=== PATIENT | male | born 1980 | race Caucasian/White ===

== ENCOUNTER 2020-08-20 07:16 | Outpatient (REF) | payer OTHER, SELFPAY | END 2020-08-20 07:17 | disposition home or self-care (01) | LOC: HO.LAB 07:16 | PROVIDERS: Visit Provider Internal Medicine | DX: Z20.828 Contact with and (suspected) exposure to other viral communicable diseases (principal) | CPT/HCPCS: C9803; U0003 ==

== ENCOUNTER 2020-09-27 06:30 | Inpatient (IN) | payer OTHER, SELFPAY ==
[2020-09-27] VITALS (8 sets, daily range): BP systolic 107–133; BP diastolic 62–76; PULSE 59–82; RESP 16–20; TEMP 37; O2SAT 95–99; BMI 27.1
--- NOTE | ~2020-09-27 | XR_ITS ---
EXAMINATION: XR CHEST CLINICAL INFORMATION: Confirm nasogastric tube placement. COMPARISON: 01/27/2018 chest radiograph. TECHNIQUE: Frontal view of the chest was obtained. FINDINGS: Support devices: A nasogastric tube is seen with tip in side-port below the left hemidiaphragm overlying the proximal stomach. There is mild elevation of the left hemidiaphragm with mild superjacent linear atelectasis versus scarring. The right lung is clear. The heart and mediastinal structures are unremarkable. Prominent gaseous distention of the superior colon is noted. XR/XR chest 1V IMPRESSION: 1. Nasogastric tube tip appears in good position. 2. No acute cardiopulmonary process. Persistent mild elevation of the left hemidiaphragm with mild superjacent linear atelectasis versus scarring.
--- NOTE | ~2020-09-27 | CT_ITS ---
EXAMINATION: CT abdomen pelvis wo con CLINICAL INFORMATION: Reason for Exam L flank pain COMPARISON: Prior CT scan from 01/27/2018 TECHNIQUE: Multidetector volumetric imaging was performed from the superior aspect of the liver through the pubic symphysis , noncontrasted study. Sagittal and coronal reformatted images were obtained on the technologist's workstation. This CT examination was performed using dose optimization techniques as appropriate, variously including the following: *Automated exposure control *Adjustment of mA and/or kV according to patient size (this includes techniques or standardized protocols for targeted exams where dose is matched to indication/reason for exam; i.e. extremities or head) *Use of iterative reconstruction technique DLP: 729 mGy-cm FINDINGS: LOWER THORAX: There is infiltrate/partial atelectasis at left lung base and a small left pleural effusion. HEPATOBILIARY: No focal hepatic lesions. No biliary ductal dilatation. GALLBLADDER: Gallbladder unremarkable. SPLEEN: Spleen is normal in size. PANCREAS: No focal mass or ductal dilatation. STOMACH AND GASTROINTESTINAL TRACT: Stomach is grossly unremarkable. Excess amount of stool in the colon suggesting constipation. Colon is dilated just proximal to anastomosis site in the left lower quadrant, raising concern for possible partial obstruction.. No CT evidence of appendicitis. ADRENALS: No adrenal nodules. KIDNEYS/URETERS: No hydronephrosis, stones or solid mass lesions. URINARY BLADDER: Partially decompressed. PELVIC VISCERA: Unremarkable PERITONEUM: No free air or fluid. LYMPH NODES: No lymphadenopathy. VASCULAR:Abdominal aorta normal in size, no aneurysm found. BONES, ABDOMINAL WALL AND SOFT TISSUES: Age-appropriate changes of the spine and skeletal system, no destructive osteolytic or osteosclerotic bone lesion found CT/CT abdomen pelvis wo con IMPRESSION: Stool-filled mildly dilated colon with a partial transition at anastomosis site at left lower quadrant, raising concern for possible partial obstruction versus constipation. Please correlate clinically. If patient symptoms persist may consider correlation with follow-up outpatient barium enema or colonoscopy. Mild infiltrate/partial atelectasis at left lung base.
--- NOTE | ~2020-09-27 | FL_ITS ---
EXAMINATION: XR BARIUM ENEMA CLINICAL INFORMATION: Distended abdomen with abdominal pain. COMPARISON: CT abdomen and pelvis 09/27/2020. TECHNIQUE: A KUB was obtained. Subsequently a balloon inflated rectal tube was inserted and a 50-50 diluted Gastrografin was injected under fluoroscopy. FINDINGS: Prior to the exam, the KUB reveals moderately distended descending and transverse colon. The descending colon measures approximately 15.9 cm wide. There is moderate stool in the right colon. Following retrograde administration of diluted Gastrografin, there is normal passage of contrast from the rectum, sigmoid colon and to the ascending colon and splenic flexure with no evidence of obstruction. Approximately 600 mL of diluted Gastrografin was inserted. Normal Gastrografin was inserted due to risk of colonic rupture and extravasation. The patient was placed in different projections such as chest supine, bilateral decubitus and prone lying with leg elevation position. With these various positions, there is spontaneous decompression of anterior gas from the descending colon. Postevacuation images reveals no gas within the left colon. There is however, moderate gas and moderate stool in the right colon. FLUOROSCOPY TIME: 4.9 minutes DOSE AREA PRODUCT: 131.634 uGy-m2 (microgray-meter squared) FL/FL barium enema IMPRESSION: 1. KUB abdomen prior to Gastrografin enema revealed significant distended transverse and descending colon with with air and moderate stool in the right colon. 2. On retrograde diluted Gastrografin enema, there is no obstruction or narrowing seen in the entire descending colon. 3. Postevacuation images reveal complete emptying of the descending colon with no gaseous distention visualized. There is however, moderate stool seen in the right colon.
--- NOTE | 2020-09-27 07:43 | ED.GENADULT ---
HPI - General Adult General Chief complaint: General Medical Stated complaint: Back pain Time Seen by Provider: 09/27/20 07:01 Source: patient Mode of arrival: ambulatory Limitations: no limitations History of Present Illness HPI narrative: 40 yo male thinks he might have hurt L back at work but not sure c/o L flank pain complaint: L flank pain Onset (ago): day(s) (2) Location: back and abdomen Radiation: non-radiation Severity: moderate Quality: aching and constant Pain Consistency: constant Relieving factors: none Exacerbating factors: movement Associated symptoms: denies other symptoms Treatments prior to arrival: none Related Data Previous Rx's Medication Instructions Recorded cholecalciferol (vitamin D3) 50 50 mcg PO DAILY #30 tab 07/28/20 mcg (2,000 unit) tablet sertraline 50 mg tablet 50 mg PO DAILY #90 tab 07/28/20 hydroxyzine HCl 50 mg tablet 50 mg PO QID PRN #120 tab 09/21/20 Allergies Allergy/AdvReac Type Severity Reaction Status Date / Time No Known Allergies Allergy Verified 09/27/20 06:43 [No Known Allergies*] Review of Systems Review of Systems: Constitutional : No Weight loss, No Fever, No Chills, ENT/Mouth : No Hearing loss, No Ear Pain, No Nasal Congestion, No Sinus Pain, No Hoarseness, No sore throat, No Rhinorrhea, No Swallowing Difficulty Cardiovascular : No Chest Pain, No SOB Respiratory : No Cough, No Dyspnea Gastrointestinal : No Nausea, No Vomiting, No Diarrhea, No abdominal Pain, No Hematochezia, No Melena Genitourinary : No Dysuria, No Urinary Frequency, No Hematuria, No Urinary Incontinence, Musculoskeletal : positive back pain Skin : No Skin Lesions, No rash Neuro : No Weakness, No Numbness, No Paresthesias, no loss of bowel or bladder incontinence, no saddle anesthesia All other systems reviewed and are negative [facility] Past Medical History Attestation statement: The following information was validated with the patient. Medical History (Updated 09/27/20 @ 10:21 by Rosa Rose DO) Anxiety and depression PTSD (post-traumatic stress disorder) Sigmoid volvulus Surgical History (Updated 09/27/20 @ 07:55 by Rosa Rose DO) H/O colectomy History of mandibular surgery Family History Family History Father No problems noted. Mother No problems noted. Social History Social History (Updated 09/27/20 @ 07:54 by Rosa Rose DO) Alcohol intake: never Smoked in Last 30 Days: No Use of substances other than those prescribed or required for medical reasons: No Advance Directives: No Advance Directives Information Provided: No Physical Exam Vital Signs: Vital Signs: Last Vital Signs Temp 98.6 F 09/27/20 06:36 Pulse 65 09/27/20 09:21 Resp 16 09/27/20 09:21 BP 107/62 09/27/20 09:21 Pulse Ox 97 09/27/20 09:21 Body Mass Index 27.1 Appearance: Alert. Oriented X3. No acute distress. Eyes: Pupils equal, round and reactive to light. ENT: Pharynx normal. Neck: Normal inspection. Neck supple. CVS: Normal heart rate and rhythm. Pulses normal. Respiratory: No respiratory distress. Breath sounds normal. Abdomen: Soft and mild L sided ttp Back: ttp along lumbar paraspinals Skin: Skin warm and dry. Normal skin color. Normal skin turgor. Extremities: No lower extremity edema. No calf ttp Neuro: Oriented X 3. No motor deficit. No sensory deficit. Course Course Course Narrative: mild LLQ pain but denies n/v had BM yesterday, no flatus today will have surgery review case given CT scan and patient's history Alexandro RECINOS - to admit given history Medical Decision Making [facility] Narrative Medical decision making narrative: 40 yo male with L flank pain and some abdominal pain hx of sigmoid volvulus with surgery denies /GI additional complaints, could be MSK strain but will need labs, UA CT scan for renal colic, IV medications for pain, dispo per results and findings. Lab Data Result diagrams: 09/27/20 07:53 09/27/20 07:53 Labs: Lab Results 09/27/20 09/27/20 09/27/20 Range/Units 07:53 07:53 07:53 WBC 6.2 (4.8-10.8) X10*3/uL RBC 5.05 (4.60-5.80) X10*6/uL Hgb 13.7 L (14.0-18.0) g/dl Hct 41.5 L (42-52) % MCV 82.2 (80-98) fL MCH 27.1 (27.0-33.0) pg MCHC 33.0 (31.0-36.0) g/dl RDW 13.2 (11.0-16.0) % Plt Count 186 (160-400) X10*3/uL MPV 10.4 (9.4-12.4) fL Immature Gran % (Auto) 0.2 (0.0-0.4) % Neut % (Auto) 64.4 (45-73) % Lymph % (Auto) 26.3 (20-40) % [place] % (Auto) 7.3 (2-11) % Eos % (Auto) 1.5 (0-4) % Baso % (Auto) 0.3 (0-2) % Lymph # (Auto) 1.6 (1.2-4.9) X10*3/uL [place] # (Auto) 0.5 (0.1-1.2) X10*3/uL Eos # (Auto) 0.1 (0.0-0.4) X10*3/uL Baso # (Auto) 0.0 (0.0-0.2) X10*3/uL Abs Immat Gran (auto) 0.01 (0.00-0.03) X10*3/uL Absolute Neuts (auto) 4.0 (2.0-8.3) X10*3/uL Absolute Nucleated RBC 0.000 (0.0-0.012) X10*3/uL Nucleated RBC % (auto) 0.0 (0.0-0.2) /100WBC Hold Blue Top SEE NOTE Sodium 139 (135-145) mmol/L Potassium 4.0 (3.3-5.1) mmol/L Chloride 108 (96-108) mmol/L Carbon Dioxide 25 (22-29) mmol/L Anion Gap 10 L (12-20) BUN 18 H (9-16) mg/dL Creatinine 0.94 (0.5-1.4) mg/dL Estim Creat Clear Calc 114.6 Estimated GFR > 60 Random Glucose 95 (60-115) mg/dL Calcium 8.5 (8.4-10.2) mg/dL Magnesium 2.0 (1.6-2.6) mg/dL Total Bilirubin 0.5 (0.0-1.0) mg/dL Direct Bilirubin 0.2 (0.0-0.5) mg/dL AST 25 (5-37) U/L ALT 30 (0-40) U/L Alkaline Phosphatase 45 (39-117) U/L Total Protein 6.6 (6.5-8.0) g/dL Albumin 4.1 (3.5-5.0) g/dL Lipase 54 (8-78) U/L Urine Color Urine Appearance Urine pH (5.0-8.0) Ur Specific [place] (1.005-1.025) Urine Protein (NEG-TRACE) MG/DL Urine Glucose (UA) (NEG) MG/DL Urine Ketones (NEG) MG/DL Urine Blood (NEG) Urine Nitrite (NEG) Ur Leukocyte Esterase (NEG) COVID-19 (KARINA) (Negative) COVID-19 Clin Com 09/27/20 09/27/20 Range/Units 09:06 09:36 WBC (4.8-10.8) X10*3/uL RBC (4.60-5.80) X10*6/uL Hgb (14.0-18.0) g/dl Hct (42-52) % MCV (80-98) fL MCH (27.0-33.0) pg MCHC (31.0-36.0) g/dl RDW (11.0-16.0) % Plt Count (160-400) X10*3/uL MPV (9.4-12.4) fL Immature Gran % (Auto) (0.0-0.4) % Neut % (Auto) (45-73) % Lymph % (Auto) (20-40) % [place] % (Auto) (2-11) % Eos % (Auto) (0-4) % Baso % (Auto) (0-2) % Lymph # (Auto) (1.2-4.9) X10*3/uL [place] # (Auto) (0.1-1.2) X10*3/uL Eos # (Auto) (0.0-0.4) X10*3/uL Baso # (Auto) (0.0-0.2) X10*3/uL Abs Immat Gran (auto) (0.00-0.03) X10*3/uL Absolute Neuts (auto) (2.0-8.3) X10*3/uL Absolute Nucleated RBC (0.0-0.012) X10*3/uL Nucleated RBC % (auto) (0.0-0.2) /100WBC Hold Blue Top Sodium (135-145) mmol/L Potassium (3.3-5.1) mmol/L Chloride (96-108) mmol/L Carbon Dioxide (22-29) mmol/L Anion Gap (12-20) BUN (9-16) mg/dL Creatinine (0.5-1.4) mg/dL Estim Creat Clear Calc Estimated GFR Random Glucose (60-115) mg/dL Calcium (8.4-10.2) mg/dL Magnesium (1.6-2.6) mg/dL Total Bilirubin (0.0-1.0) mg/dL Direct Bilirubin (0.0-0.5) mg/dL AST (5-37) U/L ALT (0-40) U/L Alkaline Phosphatase (39-117) U/L Total Protein (6.5-8.0) g/dL Albumin (3.5-5.0) g/dL Lipase (8-78) U/L Urine Color YELLOW Urine Appearance CLEAR Urine pH 6.0 (5.0-8.0) Ur Specific [place] >= 1.030 H (1.005-1.025) Urine Protein NEG (NEG-TRACE) MG/DL Urine Glucose (UA) NEG (NEG) MG/DL Urine Ketones NEG (NEG) MG/DL Urine Blood NEG (NEG) Urine Nitrite NEG (NEG) Ur Leukocyte Esterase NEG (NEG) COVID-19 (KARINA) Negative (Negative) COVID-19 Clin Com See Note Discharge Plan Discharge Clinical Impression: Acute left flank pain Partial bowel obstruction Qualifiers: Intestinal obstruction type: unspecified Qualified Code(s): K56.600 - Partial intestinal obstruction, unspecified as to cause Patient Disposition: Admitted As Inpatient
[2020-09-27] MEDS: 0.9 % Sodium Chloride 1,000 ML 999 ML IVCONT (07:55)
[2020-09-27 07:58] LABS: MANUAL DIFF FLAG NO
[2020-09-27 08:11] LABS: Basophils Percent Auto 0.3 % (0-2); Eosinophils Absolute Auto 0.1 X10*3/uL (0.0-0.4); Eosinophils Percent Auto 1.5 % (0-4); Hematocrit 41.5 % (42-52); Hemoglobin 13.7 g/dl (14.0-18.0); Imm Gran Abs Auto 0.01 X10*3/uL (0.00-0.03); Imm Gran Pct Auto 0.2 % (0.0-0.4); Lymphocytes Absolute Auto 1.6 X10*3/uL (1.2-4.9); Lymphocytes Percent Auto 26.3 % (20-40); Mean Corpuscular Hemoglobin 27.1 pg (27.0-33.0); Mean Corpuscular Volume 82.2 fL (80-98); Mean Platelet Volume 10.4 fL (9.4-12.4); Monocytes Absolute Auto 0.5 X10*3/uL (0.1-1.2); Monocytes Percent Auto 7.3 % (2-11); Neutrophils Percent Auto 64.4 % (45-73); Platelet Count 186 X10*3/uL (160-400); Red Blood Count 5.05 X10*6/uL (4.60-5.80); Red Cell Distribution Width 13.2 % (11.0-16.0); White Blood Count 6.2 X10*3/uL (4.8-10.8)
[2020-09-27 08:29] LABS: Alanine Aminotransferase 30 U/L (0-40); Albumin Level 4.1 g/dL (3.5-5.0); Alkaline Phosphatase 45 U/L (39-117); Anion Gap 10 (12-20); Aspartate Amino Transferase 25 U/L (5-37); Bilirubin Direct 0.2 mg/dL (0.0-0.5); Bilirubin Total 0.5 mg/dL (0.0-1.0); Blood Urea Nitrogen 18 mg/dL (9-16); Calcium 8.5 mg/dL (8.4-10.2); Carbon Dioxide 25 mmol/L (22-29); Chloride 108 mmol/L (96-108); Creatinine Clr Calc Pharmacy 114.6; Estimated Glomerular Filt Rate > 60; Glucose Random 95 mg/dL (60-115); Lipase 54 U/L (8-78); Sodium 139 mmol/L (135-145); Total Protein 6.6 g/dL (6.5-8.0)
[2020-09-27 09:35] LABS: COVID-19 Test Negative (Negative); IDNOW Serial# 9DD0AD1C
[2020-09-27 09:43] LABS: Glucose Urine UA NEG (NEG); Leukocyte Esterase Urine NEG (NEG); Nitrite Urine NEG (NEG); Specific Gravity - Urine >= 1.030 (1.005-1.025); Urine Blood NEG (NEG); Urine Ketones NEG (NEG); Urine Protein NEG (NEG-TRACE)
[2020-09-27 09:44] LABS: Appearance Urine CLEAR; Color Urine YELLOW
--- NOTE | 2020-09-27 10:26 | P.CONGS_ITS ---
History of Present Illness Consult details Consult date: 09/27/20 <GRISEL iSmms - Last Filed: 09/27/20 16:07> Requesting physician: Rosa Rose <GRISEL Simms - Last Filed: 09/27/20 16:07> Narrative: Cortez is a 40 yo male with PMHx of depression and prior ABD surgery for volvulos last year presents for 1 day of worsening Left flank/ABD pain. He states that he was in his normal states of health until yesterday when he developed sharp pain in the Left flank. He denies any injuries to the area. He states that the pain is constant like someone punching [me] , worse with deep inhalation and movement. Better with lying on his Right side. He denies any N/V with food. He states his last BM yesterday was hard and required straining. He states he has not passed flatus or had a BM since yesterday. ED course: CT showed a large stool burden in the colon and dilation of the bowel proximal to the prior anastamosis site suggestive of a possible PSBO. VSS. No leukocytosis <GRISEL Simms - Last Filed: 09/27/20 16:07> Review of Systems Review of Systems: Yes all other systems are reviewed and are negative <GRISEL Simms - Last Filed: 09/27/20 16:07> Gastrointestinal: Gastrointestinal: Reports abdominal pain and Reports constipation <GRISEL Simms - Last Filed: 09/27/20 16:07> Musculoskeletal: Comments: Left flank pain <GRISEL Simms - Last Filed: 09/27/20 16:07> [facility] Past Medical History Medical History: Medical History (Updated 09/27/20 @ 16:07 by GRISEL Simms) Anxiety and depression PTSD (post-traumatic stress disorder) Sigmoid volvulus <GRISEL Simms - Last Filed: 09/27/20 16:07> Family History Family History: Family History Father No problems noted. Mother No problems noted. <GRISEL Simms - Last Filed: 09/27/20 16:07> Surgical History Surgical History: Surgical History (Updated 09/27/20 @ 07:55 by Rosa Rose DO) H/O colectomy History of mandibular surgery <GRISEL Simms - Last Filed: 09/27/20 16:07> Social History Social History: Social History (Updated 09/27/20 @ 07:54 by Rosa oRse DO) Alcohol intake: never Smoked in Last 30 Days: No Use of substances other than those prescribed or required for medical reasons: No Advance Directives: No Advance Directives Information Provided: No <GRISEL Simms - Last Filed: 09/27/20 16:07> Meds Allergies/Adverse reactions: Allergies Allergy/AdvReac Type Severity Reaction Status Date / Time No Known Allergies Allergy Verified 09/27/20 06:43 [No Known Allergies*] <GRISEL Simms - Last Filed: 09/27/20 16:07> Physical Exam Vital Signs: Vital Signs: Last Vital Signs Temp 98.6 F 09/27/20 06:36 Pulse 65 09/27/20 09:21 Resp 16 09/27/20 09:21 BP 107/62 09/27/20 09:21 Pulse Ox 97 09/27/20 09:21 Body Mass Index 27.1 <GRISEL Simms - Last Filed: 09/27/20 16:07> Const: General: no acute distress and well developed <GRISEL Simms - Last Filed: 09/27/20 16:07> Orientation/consciousness: patient oriented x3 <GRISEL Simms - Last Filed: 09/27/20 16:07> Resp: Effort & Inspection: normal respiratory effort <GRISEL Simms - Last Filed: 09/27/20 16:07> Cardio: Jugular venous distension: no JVD <GRISEL Simms - Last Filed: 09/27/20 16:07> Rate: regular rate <GRISEL Simms - Last Filed: 09/27/20 16:07> GI: Inspection: Yes other (Well healed midline scar) <GRISEL Simms - Last Filed: 09/27/20 16:07> Palpation (GI): Soft to palpation and Tenderness to palpation present (GI) in the LLQ (mild) <GRISEL Simms - Last Filed: 09/27/20 16:07> : General: Yes no CVA tenderness <GRISEL Simms - Last Filed: 09/27/20 16:07> Back/Spine/Pelvis: Back: no CVA tenderness <GRISEL Simms - Last Filed: 09/27/20 16:07> Neuro: General: patient oriented x3 <GRISEL Simms - Last Filed: 09/27/20 16:07> Extrem: General: Yes no calf tenderness <GRISEL Simms - Last Filed: 09/27/20 16:07> Results Labs Result diagrams: : 09/27/20 07:53 09/27/20 07:53 <GRISEL Simms Last Filed: 09/27/20 16:07> Labs: Abnormal lab results 09/27/20 09/27/20 09/27/20 Range/Units 07:53 07:53 09:36 Hgb 13.7 L (14.0-18.0) g/dl Hct 41.5 L (42-52) % Anion Gap 10 L (12-20) BUN 18 H (9-16) mg/dL Ur Specific [place] >= 1.030 H (1.005-1.025) Short CBC 09/27/20 Range/Units 07:53 WBC 6.2 (4.8-10.8) X10*3/uL Hgb 13.7 L (14.0-18.0) g/dl Hct 41.5 L (42-52) % Plt Count 186 (160-400) X10*3/uL BMP 09/27/20 07:53 Sodium 139 Potassium 4.0 Chloride 108 Carbon Dioxide 25 BUN 18 H Creatinine 0.94 Calcium 8.5 Liver Function 09/27/20 Range/Units 07:53 Total Bilirubin 0.5 (0.0-1.0) mg/dL Direct Bilirubin 0.2 (0.0-0.5) mg/dL AST 25 (5-37) U/L ALT 30 (0-40) U/L Alkaline Phosphatase 45 (39-117) U/L Albumin 4.1 (3.5-5.0) g/dL Urine 09/27/20 Range/Units 09:36 Urine Color YELLOW Urine Appearance CLEAR Urine pH 6.0 (5.0-8.0) Ur Specific [place] >= 1.030 H (1.005-1.025) Urine Protein NEG (NEG-TRACE) MG/DL Urine Glucose (UA) NEG (NEG) MG/DL All other labs normal. <GRISEL Simms - Last Filed: 09/27/20 16:07> Assessment and Plan (1) Partial bowel obstruction: Qualifiers: Intestinal obstruction type: unspecified Qualified Code(s): K56.600 - Partial intestinal obstruction, unspecified as to cause <GRISEL Simms - Last Filed: 09/27/20 16:07> Problem details: Left flank/LLQ ABD pain starting last night. No BM of flatus today. Concern for possible PLBO complicated by constipation. <GRISEL Simms - Last Filed: 09/27/20 16:07> Status: Acute <GRISEL Simms - Last Filed: 09/27/20 16:07> Admit to med/surg for continued monitoring Pain mgmt IVF NPO at midnight NGT Barium Enema to determine if there is partial or complete bowel obstruction <GRISEL Simms - Last Filed: 09/27/20 16:07> . General Surgery Attending - Dean Platt M.D. Patient was evaluated and examined at the bedside with Mr. Alexandro Queen PA-C. Patient has a prior history of large bowel obstruction s/p resection of what appears to be sigmoid colon with Left sided anastomosis. Exam shows nontender exam with no peritoneal signs but distended moderately. CT shows chronic large bowel obstruction with fecalization of Right colon stool, descending colon dilatation, and some rectal stool although rectal vault is smaller in caliber. He likely has large bowel obstruction at the prior anatomotic site. In the past couple of hours, he has had some moderate amount of stool produced after soap suds enema. We will obtain gastrograafin enema CT to evaluate whether the obstruction is complete or partial. Meanwhile NGT will be ordered to be placed. <Toshia Platt MD - Last Filed: 09/27/20 16:13> (2) Acute left flank pain: Problem details: Related to his large stool burden <GRISEL Simms Last Filed: 09/27/20 16:07> Status: Acute <GRISEL Simms Last Filed: 09/27/20 16:07> Soap suds enema stool softner encourage ambulation. <GRISEL Simms - Last Filed: 09/27/20 16:07>
[2020-09-27] MEDS: 0.9 % Sodium Chloride 1,000 ML 100 ML IVCONT ×2 (11:23→21:36)
[2020-09-27] MEDS: Docusate Sodium 100 MG CAPSULE PO (11:23)
[2020-09-27] MEDS: Heparin Sodium,Porcine 5,000 UNIT/ML VIAL 5000 UNIT SUBCUT (16:55)
[2020-09-27] MEDS: 0.9 % Sodium Chloride Flush 3 ML SYRINGE IVFLUSH (16:56)
[2020-09-27] MEDS: Morphine Sulfate 4 MG/ML CARTRIDGE IVPUSH ×2 (17:56→21:56)
--- NOTE | 2020-09-27 21:55 | PC.NURSE ---
PT AWAITING BED ASSIGNMENT UPSTAIRS. NGT TO INTERMITTENT SUCTION. CLEAR FLUID IN TUBE. PT VOIDED AT BEDSIDE. C/O ABD AND FLANK PAIN.
[2020-09-28 05:25] VITALS: RESP 16
[2020-09-28] MEDS: Morphine Sulfate 4 MG/ML CARTRIDGE IVPUSH (05:25)
[2020-09-28] MEDS: Heparin Sodium,Porcine 5,000 UNIT/ML VIAL 5000 UNIT SUBCUT ×2 (05:25→17:26)
[2020-09-28 05:35] VITALS: BP 135/73; PULSE 76; RESP 16; O2SAT 97
[2020-09-28] MEDS: 0.9 % Sodium Chloride 1,000 ML 100 ML IVCONT ×3 (07:32→19:58)
--- NOTE | 2020-09-28 07:37 | PC.NURSE ---
REPORT GIVEN TO ABRAM MUKHERJEE
[2020-09-28 09:23] VITALS: BP 120/70; PULSE 70; RESP 16; TEMP 37; O2SAT 96
[2020-09-28] MEDS: Flu Vacc QS2020-21(6mos up)/PF 0.5 ML SYRINGE IM (10:53)
--- NOTE | 2020-09-28 10:56 | P.PNGS_ITS ---
Subjective Subjective Date of Service: 09/28/20 <Ailyn Patel PA-C - Last Filed: 09/28/20 11:06> 09/28/20 <Mayank Dasilva MD - Last Filed: 09/28/20 12:40> Interval history: Feeling better- some mild left flank discomfort but much improved. Had two BM after enema yesterday. Denies flatus. Denies nausea or vomiting currently or at home. Reports he normally has a formed bowel movement nightly. <Ailyn Patel PA-C - Last Filed: 09/28/20 11:06> Physical Exam Vital Signs: Vital Signs: Last Vital Signs Temp 98.6 F 09/28/20 09:23 Pulse 70 09/28/20 09:23 Resp 16 09/28/20 09:23 BP 120/70 09/28/20 09:23 Pulse Ox 96 09/28/20 09:23 Body Mass Index 27.1 <Ailyn Patel PA-C - Last Filed: 09/28/20 11:06> Const: General: healthy appearing, no acute distress and alert <Ailyn Patel PA-C - Last Filed: 09/28/20 11:06> Orientation/consciousness: patient oriented x3 <Ailyn Patel PA-C - Last Filed: 09/28/20 11:06> HENMT: Other: NGT in place <Ailyn Patel PA-C - Last Filed: 09/28/20 11:06> Resp: Effort & Inspection: normal respiratory effort <Ailyn Patel PA-C - Last Filed: 09/28/20 11:06> Cardio: Rate: regular rate <Ailyn Patel PA-C - Last Filed: 09/28/20 11:06> GI: Inspection: Yes distended (very mild) and Yes scar (lower midline) <LAWRENCE Alejandra Last Filed: 09/28/20 11:06> Palpation (GI): Soft to palpation, nontender, no guarding and not rigid <Ailyn Patel PA-C - Last Filed: 09/28/20 11:06> Skin: General skin exam: no rashes or lesions noted <Ailyn Patel PA-C - Last Filed: 09/28/20 11:06> Neuro: General: patient oriented x3 <Ailyn Patel PA-C - Last Filed: 09/28/20 11:06> Extrem: General: Yes no clubbing, cyanosis or edema <Ailyn Patel PA-C - Last Filed: 09/28/20 11:06> Progress Note: A&P Assessment and plan (1) Partial bowel obstruction: Status: Acute <Ailyn Patel PA-C - Last Filed: 09/28/20 11:06> Assessment and Plan: Possibly secondary to anastomotic stricture, constipation. Had an atomical side to side anastomosis with sigmoid colectomy in 2018. Feeling improved now. NGT with clear output, minimal. Has had two bowel movements following enema yesterday. VSS. Abd exam benign- soft, mildly distended, nontender. He is improved symptomatically, but awaiting results from gastrograffin enema. Will clamp NGT, possibly remove later today. Further plan following results of gastrograffin enema. ?GI consult if stricture present. Will need bowel regimen. Strongly encouraged to get OOB and ambulate. <Ailyn Patel PA-C - Last Filed: 09/28/20 11:06> Patient returned from x-ray after gastrograffin enema. No official report but exam showed emptying of left colon. Patient feels improved today. Agree with the above assessment and plan. <Mayank Dasilva MD - Last Filed: 09/28/20 12:40> Fall Risk Details Current Medications: Current Medications Generic Name Dose Route Start Last Admin Trade Name Freq PRN Reason Stop Dose Admin Docusate Sodium 100 mg 09/27/20 11:00 09/28/20 09:05 Docusate Sodium 100 Mg Capsule PO Not Given BID BRIEN Heparin Sodium (Porcine) 5,000 unit 09/27/20 17:00 09/28/20 05:25 Heparin Sodium,Porcine 5,000 Unit/Ml Vial SUBCUT 5,000 unit Q12H BRIEN Administration Sodium Chloride 1,000 mls @ 100 mls/hr 09/27/20 10:45 09/28/20 07:32 Ns IVCONT 100 mls/hr .Q10H BRIEN Administration Ibuprofen 600 mg 09/27/20 11:00 Ibuprofen 600 Mg Tablet PO Q4H PRN Fever or Pain, mild Morphine Sulfate 4 mg 09/27/20 17:35 09/28/20 05:25 Morphine Sulfate 4 Mg/Ml Cartridge IVPUSH 4 mg Q4H PRN Administration [facility] Consult 1 each 09/27/20 10:19 Consult Rx Perform Med Rec MISCELLANE ONCE PRN Consult order Sodium Chloride 3 ml 09/27/20 16:00 09/28/20 08:53 0.9 % Sodium Chloride Flush 3 Ml Syringe IVFLUSH Not Given QSHIFT BRIEN <Ailyn Patel PA-C - Last Filed: 09/28/20 11:06> Time Spent With Patient Time: Total time spent is greater than 50% in coordination of care (as doc umented) at patient's floor/unit and/or counseling patient: <Ailyn Patel PA-C - Last Filed: 09/28/20 11:06> Time with patient: 15 - 24 minutes <Ailyn Patel PA-C - Last Filed: 09/28/20 11:06>
[2020-09-28] MEDS: oxyCODONE HCl Immed Release 5 MG TABLET PO (14:59)
[2020-09-28] MEDS: Acetaminophen 325 MG TABLET 650 MG PO (14:59)
[2020-09-28 15:22] VITALS: BP 123/75; PULSE 92; RESP 13; TEMP 36.5; O2SAT 97
[2020-09-28 19:50] VITALS: BP 115/64; PULSE 61; RESP 14; TEMP 36.2; O2SAT 95
[2020-09-28] MEDS: 0.9 % Sodium Chloride Flush 3 ML SYRINGE IVFLUSH (19:57)
[2020-09-28] MEDS: Docusate Sodium 100 MG CAPSULE PO (19:57)
[2020-09-28 23:02] VITALS: BP 107/65; PULSE 66; RESP 20; TEMP 36.6; O2SAT 97
[2020-09-29] MEDS: Heparin Sodium,Porcine 5,000 UNIT/ML VIAL 5000 UNIT SUBCUT (04:36)
--- NOTE | 2020-09-29 08:01 | PM.PNGS ---
Subjective Subjective Date of Service: 09/29/20 Interval history: Patient feels much improved and tolerated the clear liquid diet yesterday. Has been passing flatus but no further bowel movement this morning. Denies nausea or vomiting. Physical Exam Vital Signs: Vital Signs: Last Vital Signs Temp 97.8 F 09/28/20 23:02 Pulse 66 09/28/20 23:02 Resp 20 09/28/20 23:02 BP 107/65 09/28/20 23:02 Pulse Ox 97 09/28/20 23:02 Body Mass Index 27.1 Const: General: cooperative, healthy appearing, comfortable and no acute distress Resp: Effort & Inspection: normal respiratory effort Auscultation: clear to auscultation bilaterally, no crackles and no wheezes GI: Other: Soft, nondistended, nontender, no rebound, no guarding, no palpable mass Skin: Other: Warm, dry, no rash Extrem: Other: No edema Progress Note: A&P Assessment and plan (1) Partial bowel obstruction: Status: Acute Assessment and Plan: Patient feels much improved today. Barium enema reviewed. No evidence of a bowel obstruction. Anastomosis is patent and wide open without obstruction or stricture. Residual stool still remains in the right colon at the end of the procedure. Patient started on MiraLax daily. Will advance to regular diet. Possible discharge to home if diet is well tolerated. Fall Risk Details Current Medications: Current Medications Generic Name Dose Route Start Last Admin Trade Name Freq PRN Reason Stop Dose Admin Acetaminophen 650 mg 09/28/20 14:45 09/28/20 14:59 Acetaminophen 325 Mg Tablet PO 650 mg Q6H PRN Administration Pain, Mild (Pain Scale 1-3) Docusate Sodium 100 mg 09/27/20 11:00 09/28/20 19:57 Docusate Sodium 100 Mg Capsule PO 100 mg BID BRIEN Administration Heparin Sodium (Porcine) 5,000 unit 09/27/20 17:00 09/29/20 04:36 Heparin Sodium,Porcine 5,000 Unit/Ml Vial SUBCUT 5,000 unit Q12H BRIEN Administration Sodium Chloride 1,000 mls @ 100 mls/hr 09/27/20 10:45 09/29/20 06:23 Ns IVCONT Infused .Q10H BRIEN Infusion Ibuprofen 600 mg 09/27/20 11:00 Ibuprofen 600 Mg Tablet PO Q4H PRN Fever or Pain, mild Morphine Sulfate 4 mg 09/27/20 17:35 09/28/20 05:25 Morphine Sulfate 4 Mg/Ml Cartridge IVPUSH 4 mg Q4H PRN Administration Breakthrough Pain Oxycodone HCl 5 mg 09/28/20 14:45 09/28/20 14:59 Oxycodone Hcl Immed Release 5 Mg Tablet PO 5 mg Q4H PRN Administration Pain, Moderate (Pain Scale 4-6 Pharmacy Consult 1 each 09/27/20 10:19 Consult Rx Perform Med Rec MISCELLANE ONCE PRN Consult order Polyethylene Glycol 17 gm 09/29/20 09:00 Polyethylene Glycol 3350 17 Gm Powd.Pack PO DAILY BRIEN Sodium Chloride 3 ml 09/27/20 16:00 09/28/20 19:57 0.9 % Sodium Chloride Flush 3 Ml Syringe IVFLUSH 3 ml QSHIFT BRIEN Administration Time Spent With Patient Time: Total time spent is greater than 50% in coordination of care (as documented) at patient's floor/unit and/or counseling patient: Time with patient: 15 - 24 minutes
[2020-09-29 08:34] VITALS: BP 99/60; PULSE 74; RESP 18; TEMP 37.6; O2SAT 94
[2020-09-29] MEDS: Docusate Sodium 100 MG CAPSULE PO (09:29)
[2020-09-29] MEDS: polyethylene glycoL 3350 17 GM POWD.PACK PO (09:29)
--- NOTE | 2020-09-29 10:25 | MHC.CM.PN ---
dc plan home no servceis pt has own transportaion home
[2020-09-29 11:42] VITALS: BP 115/65; PULSE 78; RESP 18; TEMP 37.3; O2SAT 95
[2020-09-29] MEDS: 0.9 % Sodium Chloride 1,000 ML 100 ML IVCONT (14:27)
--- NOTE | 2020-09-29 15:01 | MHC.CM.PN ---
pt dcd home no servceis
--- NOTE | 2020-09-30 08:07 | PM.DS ---
DS: Providers Provider Date of Service: 09/30/20 Date of admission: 09/27/20 10:44 Primary care physician: [facility] DS: Diagnosis Discharge Diagnosis (1) Partial bowel obstruction: Status: Acute DS: Medications Discharge Medications Home Medications: Previous Rx's Medication Instructions Recorded cholecalciferol (vitamin D3) 50 50 mcg PO DAILY #30 tab 07/28/20 mcg (2,000 unit) tablet sertraline 50 mg tablet 50 mg PO DAILY #90 tab 07/28/20 hydroxyzine HCl 50 mg tablet 50 mg PO QID PRN #120 tab 09/21/20 polyethylene glycol 3350 [Miralax] 17 g PO DAILY #510 g 09/29/20 DS: Summary Hospital Course Hospital Course: BRIEF HPI: Cortez is a 40 yo male with PMHx of depression and hx of sigmoid colectomy for volvulus in 2018 who presented to the ED with complaints of abdominal pain. He states that he was in his normal states of health until yesterday when he developed sharp pain in the left abdomen and flank. The pain was constant and worse with deep inhalation and movement. He denies any N/V with food. He states his last BM yesterday was hard and required straining. He states he has not passed flatus or had a BM since yesterday. CT scan abd/pelvis was obtained which showed a large stool burden in the colon and dilation of the bowel proximal to the prior anastamosis site suggestive of a possible obstruction. HOSPITAL COURSE:An NGT was placed in the ED and admission was requested for further work up and treatment of his abdominal pain. He was admitted to the surgical service under Dr. Platt. The patient was given tap water enemas with good results. A gastrograffin enema was performed to further evaluate the anastomosis for stricture and obstruction. The patient felt improved symptomatically with less abdominal pain. His NGT output was also clear in nature and scanty and was therefore removed on HD #1 and he was advanced to clear liquids. The barium enema showed no evidence of a bowel obstruction and the anastomosis was patent without obstruction or stricture. He continued to feel improved and was tolerating a clear liquid diet. He was therefore advanced to a solid diet. He was started on miralax for a bowel regimen for large stool burden seen on admission. He was reassessed later in the day and was tolerating a solid diet without recurrent abdominal pain or developing nausea or vomiting. He continued to move his bowels. He felt well and ready for discharge. He was discharged to home on 09/29/20 in stable condition on miralax daily. Status at Discharge Overall status at discharge: patient is back to baseline Time Spent with Patient Time attestation: Total time spent providing and/or coordinating discharge services: Discharge coordination time: Less than 30 minutes Physical Exam Vital Signs: Vital Signs: Last Vital Signs Temp 99.1 F 09/29/20 11:42 Pulse 78 09/29/20 11:42 Resp 18 09/29/20 11:42 BP 115/65 09/29/20 11:42 Pulse Ox 95 09/29/20 11:42 Body Mass Index 27.1 Const: General: healthy appearing, comfortable, no acute distress and alert Orientation/consciousness: patient oriented x3 Eyes: Sclerae: sclerae normal Resp: Effort & Inspection: normal respiratory effort Cardio: Rate: regular rate GI: Inspection: No distended Palpation (GI): Soft to palpation, nontender and no guarding Skin: General skin exam: no rashes or lesions noted Neuro: General: patient oriented x3 Extrem: General: Yes no clubbing, cyanosis or edema DS: Data Data Completed and Pending Labs on day of discharge: Laboratory Tests 09/27/20 09/27/20 09/27/20 07:53 07:53 07:53 WBC 6.2 RBC 5.05 Hgb 13.7 L Hct 41.5 L MCV 82.2 MCH 27.1 MCHC 33.0 RDW 13.2 Plt Count 186 MPV 10.4 Immature Gran % (Auto) 0.2 Neut % (Auto) 64.4 Lymph % (Auto) 26.3 Hanson % (Auto) 7.3 Eos % (Auto) 1.5 Baso % (Auto) 0.3 Lymph # (Auto) 1.6 Hanson # (Auto) 0.5 Eos # (Auto) 0.1 Baso # (Auto) 0.0 Abs Immat Gran (auto) 0.01 Absolute Neuts (auto) 4.0 Absolute Nucleated RBC 0.000 Nucleated RBC % (auto) 0.0 Hold Blue Top SEE NOTE Sodium 139 Potassium 4.0 Chloride 108 Carbon Dioxide 25 Anion Gap 10 L BUN 18 H Creatinine 0.94 Estim Creat Clear Calc 114.6 Estimated GFR > 60 Random Glucose 95 Calcium 8.5 Magnesium 2.0 Total Bilirubin 0.5 Direct Bilirubin 0.2 AST 25 ALT 30 Alkaline Phosphatase 45 Total Protein 6.6 Albumin 4.1 Lipase 54 Urine Color Urine Appearance Urine pH Ur Specific [place] Urine Protein Urine Glucose (UA) Urine Ketones Urine Blood Urine Nitrite Ur Leukocyte Esterase COVID-19 ([facility]INA) COVID-19 Clin Com 09/27/20 09/27/20 09:06 09:36 WBC RBC Hgb Hct MCV MCH MCHC RDW Plt Count MPV Immature Gran % (Auto) Neut % (Auto) Lymph % (Auto) Hanson % (Auto) Eos % (Auto) Baso % (Auto) Lymph # (Auto) Hanson # (Auto) Eos # (Auto) Baso # (Auto) Abs Immat Gran (auto) Absolute Neuts (auto) Absolute Nucleated RBC Nucleated RBC % (auto) Hold Blue Top Sodium Potassium Chloride Carbon Dioxide Anion Gap BUN Creatinine Estim Creat Clear Calc Estimated GFR Random Glucose Calcium Magnesium Total Bilirubin Direct Bilirubin AST ALT Alkaline Phosphatase Total Protein Albumin Lipase Urine Color YELLOW Urine Appearance CLEAR Urine pH 6.0 Ur Specific [place] >= 1.030 H Urine Protein NEG Urine Glucose (UA) NEG Urine Ketones NEG Urine Blood NEG Urine Nitrite NEG Ur Leukocyte Esterase NEG COVID-19 ([facility]INA) Negative COVID-19 Clin Com See Note Discharge Plan Discharge Patient Disposition: Home, Self-Care Referrals: [facility] [Primary Care Provider] - Mayank Dasilva MD [Physician] - (as needed) Discharge Medications: New polyethylene glycol 3350 [Miralax] 17 gram/dose powder 17 g PO DAILY Qty: 510 RF: 1 Continued sertraline 50 mg tablet 50 mg PO DAILY Qty: 90 RF: 0 cholecalciferol (vitamin D3) 50 mcg (2,000 unit) tablet 50 mcg PO DAILY Qty: 30 RF: 3 hydroxyzine HCl 50 mg tablet 50 mg PO QID PRN (Reason: for anxiety) Qty: 120 RF: 2 Discharge Orders: Discharge Order (Routine); Ordered 09/29/20 Ordered By: Ailyn Patel Diet: regular diet Activity on Discharge: As tolerated Stand Alone Forms: Patient Portal Discharge page, Work/School Release Print Language: Occitan Visit Report Forms: Patient Portal Discharge page Care Plan Goals: Return to baseline health; improve constipation Health Concerns: Partial large bowel obstruction, constipation Plan of Treatment: Discharge to home, f/u as needed, begin miralax daily Discharge Date/Time: 09/29/20 15:30
== END 2020-09-29 15:30 | disposition home or self-care (01) | DRG 247 ==
LOC: HO.ED 10:21 → HO.EDOVER 11:14 → HO.S3 09-28 07:15
PROVIDERS: Admitting Provider Surgery; Emergency Provider Emergency Medicine; Visit Provider Surgery
DX: K56.600 Partial intestinal obstruction, unspecified as to cause (principal); F41.9 Anxiety disorder, unspecified; Z20.822 Contact with and (suspected) exposure to COVID-19; Z23 Encounter for immunization; Z79.899 Other long term (current) drug therapy
CPT/HCPCS: 36415; 71045; 74176; 74270; 80048; 80076; 81003; 83690; 83735; 85025; 87635; 90686; 96360; 99285; J2270

== ENCOUNTER 2021-08-05 09:48 | Emergency (ER) | payer OTHER, SELFPAY ==
--- NOTE | ~2021-08-05 | CT_ITS ---
EXAMINATION: CT HEAD WITHOUT CONTRAST CLINICAL INFORMATION: Head injury at work with scalp soft tissue swelling COMPARISON: None TECHNIQUE: Contiguous axial imaging was performed from the skull base to vertex without intravenous administration of contrast. This CT examination was performed using dose optimization techniques as appropriate, variously including the following: *Automated exposure control *Adjustment of mA and/or kV according to patient size (this includes techniques or standardized protocols for targeted exams where dose is matched to indication/reason for exam; i.e. extremities or head) *Use of iterative reconstruction technique DLP: 856 mGy-cm FINDINGS: There is no evidence of acute intracranial hemorrhage or territorial infarction. No abnormal mass effect or midline shift is seen. Murray to white matter differentiation is well preserved. No extra-axial fluid collections are identified. The ventricles are normal in size. There is no abnormal attenuation within the brain parenchyma. The osseous structures and soft tissues are normal. The mastoid air cells and visualized portions of the paranasal sinuses are well aerated. CT/CT head/brain wo con IMPRESSION: No acute intracranial process seen.
[2021-08-05 10:07] VITALS: BP 133/88; PULSE 70; RESP 20; TEMP 36.6; O2SAT 99; BMI 28.5
[2021-08-05] MEDS: Acetaminophen 325 MG TABLET 975 MG PO (10:40)
[2021-08-05] MEDS: Ondansetron ODT 4 MG TAB.RAPDIS TRANSLINGU (10:40)
--- NOTE | 2021-08-05 11:16 | ED.HEATRA ---
HPI - Head Injury General Chief complaint: Head Injury Stated complaint: head inj at work Time Seen by Provider: 08/05/21 10:31 Source: patient Mode of arrival: ambulatory Limitations: no limitations History of Present Illness HPI Narrative: 41-year-old male presenting to the ED with complaints of dizziness, nausea and headache after he was at work and he was working on his machine when he he went forward quickly and forgot that the machine was there and impacted his head with the machine on the left frontal/parietal aspect of the scalp with a superficial abrasion. He denies loss of consciousness or being on any blood thinners. He denies any changes in vision, ear pain, trouble swallowing or breathing or any other injuries complaints or concerns at this time. MD Complaint: head injury Onset (ago): minute(s) (Prior to arrival) Mechanism of Injury: work related injury Place: work Loss of Consciousness: no Location of injury: frontal and parietal Severity: moderate Quality: aching Radiation: none Other Injuries: other (With superficial abrasion) Associated symptoms: nausea and other (Dizziness and headaches) Related Data Previous Rx's Medication Instructions Recorded cholecalciferol (vitamin D3) 50 50 mcg PO DAILY #30 tab 07/28/20 mcg (2,000 unit) tablet hydroxyzine HCl 50 mg tablet 50 mg PO QID PRN #120 tab 09/21/20 polyethylene glycol 3350 17 17 g PO DAILY #510 g 09/29/20 gram/dose oral powder (Miralax) sertraline 50 mg tablet 50 mg PO DAILY #90 tab 10/20/20 acetaminophen 300 mg-codeine 30 mg 1 tab PO Q8H PRN #14 tab 08/05/21 tablet ondansetron HCl 4 mg tablet 4 mg PO Q8H PRN #14 tab 08/05/21 (Zofran) Allergies Allergy/AdvReac Type Severity Reaction Status Date / Time No Known Allergies Allergy Verified 09/27/20 06:43 [No Known Allergies*] Review of Systems Review of Systems: Constitutional : No Fever, No Chills, No Night Sweats, No Fatigue, No Malaise ENT/Mouth : No Ear Pain, No Nasal Congestion, No Sinus Pain, No sore throat, No Rhinorrhea Eyes: No Eye Pain, No Swelling, No Redness, No Foreign Body, No Discharge, No Vision Changes Cardiovascular : No Chest Pain, No SOB, No Dyspnea on Exertion, No Orthopnea, No Palpitations Respiratory : No Cough, No Sputum, No Wheezing, No Dyspnea Gastrointestinal : + Nausea, No Vomiting, No Diarrhea, No Constipation, No abdominal Pain, No Hematochezia, No Melena Genitourinary : No Dysuria, No Urinary Frequency, No Urinary Incontinence, No Urgency, No Flank Pain Musculoskeletal : No joint pain, No Myalgias Skin : No lacerations Neuro : + head injury c headache and dizziness, No Focal weakness, no general weakness, No Numbness, No Paresthesias, No Loss of Consciousness Yes all other systems are reviewed and are negative [facility] Past Medical History Attestation statement: The following information was validated with the patient. Medical History Anxiety and depression PTSD (post-traumatic stress disorder) Sigmoid volvulus Surgical History H/O colectomy History of mandibular surgery Family History Family History Father No problems noted. Mother No problems noted. Social History Social History Household Members: Significant Other Housing: Apartment Do you presently have visiting nurse or other home services: No Alcohol intake: never Advance Directives: No Advance Directives Information Provided: Yes service: No Physical Exam Vital Signs: Vital Signs: Last Vital Signs Temp 98 F 08/05/21 10:07 Pulse 70 08/05/21 10:07 Resp 20 08/05/21 10:07 BP 133/88 08/05/21 10:07 Pulse Ox 99 08/05/21 10:07 BMI result Body Mass Index 28.5 Vital signs have been reviewed as normal and appeared to be correct. Blood pressure normal. Heart rate normal. Respiration rate normal. Temperature normal. Oxygen saturation normal. Appearance: Alert. Oriented X3. No acute distress. Head: To the left frontal aspect of the scalp patient has a 3 cm abrasion no active bleeding or foreign bodies noted with mild soft tissue swelling. Otherwise the rest of the external exam is within normal limits. Able to rotate head bilaterally. Eyes: PERRLA. EOMI. No nystagmus noted. Conjunctiva and sclera normal. Eyelids normal. Corneal reflex normal. ENT: EAC normal. TM's Normal. No septal hematoma noted. No hemotympanum noted. Hearing normal. Pharynx normal. Uvula midline. tongue midline. Moist mucous membranes. No trismus noted. No drooling noted. No muffled voice noted. No nystagmus noted. Neck: Normal inspection. Neck supple. FROM. No adenopathy. Trachea midline. Thyroid Normal. No meningeal signs. No neck mass noted. CVS: Normal heart rate and rhythm. Heart sound normal. No murmurs noted. Pulses normal throughout. Respiratory: No respiratory distress. Painless inspiration. Breath sounds normal. No wheezes/rales/rhonchi noted. Chest nontender. No accessory muscle usage noted or decreased air movement noted. Abdomen: Soft and nontender. Bowel sounds normal in all 4 quadrants. No distention noted. No organomegaly noted. No visible injury noted. Back: No CVA tenderness. Full range of motion noted. Skin: Skin warm and dry. Normal skin color. Normal skin turgor. No rashes/lesions/lacerations noted. Extremities: No lower extremity edema. Extremities exhibit normal range of motion. Extremities nontender. Able to shrug shoulders bilaterally and keep up against resistance. Neuro: Oriented X 3. No motor deficit. No sensory deficit. Reflexes normal. Moving all extremities. No focal motor deficits. Cranial nerves II-XI intact bilaterally. Facial strength normal. Normal cognition. Speech normal. Gait normal. Strength 5/5 throughout. No pronator drift. No tremor noted. No fasciculations noted. No rigidity noted. Muscle tone normal throughout. No asterixis noted. [id number] test normal. Heel to [place] test normal. Tandem gait normal. Does not sway with eyes open. Romberg test negative. Rapid alternating movement upper extremity normal. Rapid alternating movement lower extremity normal. Hand drop from overhead Misses face. Course Course Course Narrative: 41-year-old male presenting to the ED with superficial abrasion and soft tissue swelling to the left frontal aspect of the scalp after he had a machine at work while he was trying to set up the machine no loss of consciousness although presenting with nausea, dizziness and intermittent headaches. He is up-to-date on tetanus she reports. He denies any other injuries complaints or concerns at this time. On exam patient is neuro intact. No deficits are noted. Therefore CT scan of brain obtained and negative for any acute processes. Patient most likely concussion with head injury. Will DC home with concussion precautions and instructions to follow-up with PCP/concussion Clinic [facility] to return if any new or worsening symptoms. Patient understands agrees with this plan. MDM - Head Injury Medical Records Attestation: I reviewed the patient's medical records. Imaging Data CT scan of brain without contrast: Attestation: I personally reviewed and interpreted this imaging study as follows: Radiologist's impression: FINDINGS: There is no evidence of acute intracranial hemorrhage or territorial infarction. No abnormal mass effect or midline shift is seen. Murray to white matter differentiation is well preserved. No extra-axial fluid collections are identified. The ventricles are normal in size. There is no abnormal attenuation within the brain parenchyma. The osseous structures and soft tissues are normal. The mastoid air cells and visualized portions of the paranasal sinuses are well aerated. ? CT/CT head/brain wo con IMPRESSION: No acute intracranial process seen. Discharge Plan Discharge Clinical Impression: Closed head injury, Concussion without loss of consciousness, Superficial abrasion, Work related injury Patient Disposition: Home, Self-Care Instructions: Concussion (ED), Head Injury (ED), Return to Work Instructions (ED) Additional Instructions: You should follow-up with work [facility] from your job. You can also follow-up with [facility] sports at [facility] at [address] [facility] at [phone] Prescriptions: New ondansetron HCl [Zofran] 4 mg tablet 4 mg PO Q8H PRN (Reason: nausea and vomiting) Qty: 14 RF: 0 acetaminophen-codeine 300-30 mg tablet 1 tab PO Q8H PRN (Reason: pain) Qty: 14 RF: 0 No Action cholecalciferol (vitamin D3) 50 mcg (2,000 unit) tablet 50 mcg PO DAILY Qty: 30 RF: 3 hydroxyzine HCl 50 mg tablet 50 mg PO QID PRN (Reason: for anxiety) Qty: 120 RF: 2 sertraline 50 mg tablet 50 mg PO DAILY Qty: 90 RF: 2 polyethylene glycol 3350 [Miralax] 17 gram/dose powder 17 g PO DAILY Qty: 510 RF: 1 Referrals: [facility] [Provider Group] - 2 days Physician,Unknown J [Primary Care Provider] - 2 days (your pcp) Stand Alone Forms: Work/School Release Print Language: Guatemalan
[2021-08-05 11:32] VITALS: RESP 17
== END 2021-08-05 11:40 | disposition home or self-care (01) ==
PROVIDERS: Emergency Provider Emergency Medicine
DX: S06.0X0A Concussion without loss of consciousness, initial encounter (principal); S00.01XA Abrasion of scalp, initial encounter; W22.8XXA Striking against or struck by other objects, initial encounter; Y93.9 Activity, unspecified; Y92.513 Shop (commercial) as the place of occurrence of the external cause; Y99.0 Civilian activity done for income or pay
CPT/HCPCS: 70450; 99284

== ENCOUNTER → 2021-08-09 13:47 | Outpatient (BNVA) | payer OTHER, SELFPAY | PROVIDERS: Visit Provider Physician Assistant Medical | DX: S00.83XA Contusion of other part of head, initial encounter (principal); S00.81XA Abrasion of other part of head, initial encounter; W22.8XXA Striking against or struck by other objects, initial encounter ==

== ENCOUNTER 2023-05-12 11:37 | Outpatient (AMB) | payer OTHER, SELFPAY ==
--- NOTE | 2023-05-12 14:00 | AM.OFFWIN_ITS ---
Intake Vital Signs 05/12/23 14:07 Height 6 ft Weight 210 lb 6 oz BMI 28.5 BP 110/70 Blood Pressure Location Rt brachial Position Sitting Pulse 93 Pulse Source Pulse Oximeter Temp 98.3 F Temp Source Temporal Artery Scan Pulse Oximetry (%) 97 Oxygen Delivery Method Room Air Intake Visit Reasons: EST/head/body aches Intake Note: Pt is here c/o headache and body aches for the last two days. Patient Tobacco Use Status: Never used Tobacco Allergies No Known Allergies [No Known Allergies*] Allergy (Verified 05/12/23 14:07) Do you need a note to return to daycare/school/sports/work: Yes HPI HPI Comments History of Present Illness Details This is a 42-year-old malewho presents to the office today for sick visit. Patient complaining of generalized weakness, headache, body aches, sore throat, odynophagia, and decreased appetite x 3 days. He denies any fevers or chills. He denies any abdominal pain or nausea/vomiting. He has had several episodes of loose stools. He denies any chest pain or shortness of breath. [facility] Medical History Anxiety and depression PTSD (post-traumatic stress disorder) Sigmoid volvulus Surgical History H/O colectomy History of mandibular surgery Family History Father No problems noted. Mother No problems noted. Social History Household Members: Significant Other Housing: Apartment Do you presently have visiting nurse or other home services: No Alcohol intake: never Patient Tobacco Use Status: Never used Tobacco service: No Review of Systems Const All systems reviewed & are unremarkable except as noted in HPI and below Reports no additional complaints Eyes Reports no additional complaints ENT Reports no additional complaints Card Reports no additional complaints Resp Reports no additional complaints GI Reports no additional complaints Reports no additional complaints Musc Reports no additional complaints Skin/Breast Reports system reviewed and no additional complaints, except as documented Neuro Reports no additional complaints Psych Reports no additional complaints Endo Reports no additional complaints Mitesh/Lymph Reports no additional complaints Aller/Immun Reports no additional complaints Physical Exam Vital Signs: Last Vital Signs Temp 98.3 F 05/12/23 14:07 Pulse 93 05/12/23 14:07 BP 110/70 05/12/23 14:07 Pulse Ox 97 05/12/23 14:07 Oxygen Delivery Method Room Air 05/12/23 14:07 BMI result Body Mass Index 28.5 Const Other: Vital signs reviewed. Constitutional: Non-toxic appearing. No acute distress. Well-developed and well-nourished. HEENT: Normocephalic and atraumatic. Tympanic membranes without erythema, edema, or bulging bilaterally. External auditory canals without erythema or edema bilaterally. Moist mucous membranes. Significant posterior pharyngeal erythema and bilateral tonsillary hypertrophy. No peritonsillar mass or unilateral neck swelling. Skin: Warm and dry. No rashes or lesions noted. Neck: Full and painless range of motion. No cervical lymphadenopathy. Cardio: Regular rate and rhythm. No murmurs, gallops, or rubs. No lower extremity edema. No JVD. Pulmonary: No respiratory distress. No accessory muscle usage. Clear to auscultation bilaterally without wheezing, crackles, or rhonchi. Gastrointestinal: Soft, nontender, and nondistended in all 4 quadrants. Normoactive bowel sounds in all 4 quadrants. Genitourinary: No CVA tenderness. Musculoskeletal: Normal range of motion in joints throughout the body. No deformity or other signs of injury. Neuro: Alert and oriented x4. Cranial nerves 2-12 grossly intact. No focal deficits appreciated. Psych: Normal mood and affect. Results AMB Rapid Strep AMB Rapid Strep Negative Last Edit by Jenny Molina CMA on 05/12/23 14:36 Assessment & Plan Assessment & Plan (1) Acute pharyngitis: Code(s): J02.9 - Acute pharyngitis, unspecified Plan: this is a 42-year-old male presenting to the office complaining of generalized weakness, diffuse myalgias, and sore throat x3 days. On physical examination, patient has significant posterior pharyngeal erythema and bilateral tonsillar hypertrophy but his physical exam is othewise benign. His vital signs are stable and he is overall nontoxic appearing. History and physical most consiste nt with acute pharyngitis, likely streptococcal, versus COVID/flu/RSV/other viral URI. COVID/flu/RSV sent. Rapid strep obtained was negative. Patient will be treated with PO amoxicillin 500mg twice daily x 10 days for suspected streptococcal pharyngitis. Recommended symptomatic management including rest, increased fluids, advil/tylenol for pain/fever, and over the counter throat lozenges/decongestants. Patient advised to follow up here or go to the emergency room for worsening/persistent symptoms. Patient verbalized understanding and is agreeable with the plan. (2) URI (upper respiratory infection): Code(s): J06.9 - Acute upper respiratory infection, unspecified Orders: Orders SARS-CoV2/FLU/RSV Today R09.89 - Other specified symptoms and signs involving the circulatory and respiratory systems AMB Rapid Strep Screen Today Z13.9 - Encounter for screening, unspecified Medications: New amoxicillin 500 mg PO BID 20 caps 0RF Coding Level of Care Code Est Pt Level 3 (09900) Diagnoses Acute pharyngitis J02.9 URI (upper respiratory infection) J06.9
[2023-05-12 14:07] VITALS: BP 110/70; PULSE 93; TEMP 36.8; O2SAT 97; BMI 28.5
== END 2023-05-12 15:19 | disposition home or self-care (01) ==
PROVIDERS: Visit Provider Physician Assistant Medical
DX: J02.9 Acute pharyngitis, unspecified (principal); J06.9 Acute upper respiratory infection, unspecified
CPT/HCPCS: 87880; 99213

== ENCOUNTER 2023-05-12 11:47 | Outpatient (REF) | payer OTHER, SELFPAY ==
[2023-05-13 12:30] LABS: Influenza A PCR NEGATIVE (Negative); Influenza B PCR NEGATIVE (Negative); Resp Syncy Virus RNA Qual PCR NEGATIVE (Negative); SARS COV2 PCR INHOUSE NEGATIVE (Negative)
== END 2023-05-12 11:48 | disposition home or self-care (01) ==
LOC: HO.LNP 11:47
PROVIDERS: Visit Provider Physician Assistant Medical
DX: Z20.822 Contact with and (suspected) exposure to COVID-19 (principal); Z20.828 Contact with and (suspected) exposure to other viral communicable diseases
CPT/HCPCS: 0241U